=== PATIENT | female | born 1985 | race Caucasian/White ===

== ENCOUNTER 2016-10-06 12:55 | Emergency (ER) | payer BC, MEDICAID, OTHER ==
[2016-10-06 12:57] VITALS: BMI 32.2
[2016-10-06 13:07] VITALS: TEMP 98.1
[2016-10-06] MEDS ORDERED: Sodium Chloride 0.9% 1,000 ML IV STA ×2 (13:58→17:48)
--- NOTE | 2016-10-06 14:56 | ED PDOC ---
HPI:Nausea, Vomiting, Diarrhea Time Seen by Provider: 10/06/16 13:18 Chief Complaint (Nursing): Headache Chief Complaint (Provider): Nausea/Vomiting History Per: Patient History/Exam Limitations: no limitations Onset/Duration Of Symptoms: Days (x12 weeks), Worse Since (x3 days ago) Current Symptoms Are (Timing): Still Present Have you had recent travel within the past 21 days to any of the following countries: [place], [place], [place] or [place]?: No Context: Other () Severity: Moderate Associated Symptoms: Chills, Nausea, Vomiting, Other (frontal headache; denies abdominal pain or vaginal bleeding). denies: Fever Additional Complaint(s): Sally Castañeda is a 31 year old female, with no pertinent past medical history, who presents to the emergency department with complaints of nausea and vomiting , that the patient has been experiencing for 12 weeks (ever since she was ); however, her symptoms worsened over the past 3 days, prompting her visit to the emergency room. Patient states that she cannot keep anything down. Associated frontal headache that occurs in intermittent episodes and chills are also currently present. Patient reports that she has had a history of migraines in the past and that this is not the worst of her life. Denies abdominal pain, vaginal bleeding, or a fever. Of note, patient is currently 12 weeks and has not had an ultrasound performed yet. PMD: Emil Davis Abnormal Vaginal Bleeding: No : 4 Para: 3 Miscarriage: 0 Past Medical History Reviewed: Historical Data, Nursing Documentation, Vital Signs Vital Signs: Last Vital Signs Temp 98.1 F 10/06/16 13:04 Pulse 76 10/06/16 13:04 Resp 16 10/06/16 13:04 BP 111/69 10/06/16 13:04 Pulse Ox 98 10/06/16 13:04 - Medical History PMH: No Chronic Diseases - Surgical History Surgical History: - Family History Family History: States: Unknown Family Hx - Social History Current smoker - smoking cessation education provided: No Ex-Smoker (has not smoked in the last 12 months): No Alcohol: None Drugs: Denies - Home Medications Home Medications: Ambulatory Orders Medication Instructions Recorded Ibuprofen [Motrin Tab] 800 mg PO Q8 PRN #40 tab 02/22/14 Acetaminophen [Tylenol 325mg tab] 325 mg PO Q6 PRN #20 tab 10/06/16 RX: Doxylamine/Pyridoxine HCl 2 each PO HS #60 tablet. 10/06/16 [Arsenio Dueñas 10-10 mg Tablet] - Allergies Allergies/Adverse Reactions: Allergies Allergy/AdvReac Type Severity Reaction Status Date / Time No Known Allergies Allergy Verified 02/19/14 10:23 Review of Systems ROS Statement: Except As Marked, All Systems Reviewed And Found Negative Constitutional: Positive for: Chills. Negative for: Fever Gastrointestinal: Positive for: Nausea, Vomiting. Negative for: Abdominal Pain Genitourinary Female: Negative for: Vaginal Bleeding Neurological: Positive for: Headache (frontal) Physical Exam - Reviewed Nursing Documentation Reviewed: Yes Vital Signs Reviewed: Yes - Physical Exam Appears: Positive for: Non-toxic, No Acute Distress Head Exam: Positive for: ATRAUMATIC, NORMOCEPHALIC Skin: Positive for: Normal Color, Warm, Dry Eye Exam: Positive for: Normal appearance, EOMI, PERRL Neck: Positive for: Normal, Painless ROM Cardiovascular/Chest: Positive for: Regular Rate, Rhythm. Negative for: Edema, Murmur Respiratory: Positive for: Normal Breath Sounds. Negative for: Respiratory Distress Gastrointestinal/Abdominal: Positive for: Normal Exam, Soft. Negative for: Tenderness Neurologic/Psych: Positive for: Alert, Oriented - Laboratory Results Result Diagrams: 10/06/16 14:30 10/06/16 14:30 - ECG O2 Sat by Pulse Oximetry: 98 (RA) Pulse Ox Interpretation: Normal - Progress Re-evaluation Time: 17:39 Condition: Re-examined, Improved Medical Decision Making Medical Decision Makin:18 Initial Impression: nausea/vomiting and Differential Diagnoses include, but are not limited to hyperemesis gravidarum and other complications of . Initial Plan: * US OB * CBC * CMP * Urine Dip * Urine * Sodium Chloride 0.9% 1,000 ml at 1,000 mls/hr * Acetaminophen 650 mg PO * Reevaluation US OB 10w 4 d IUP Scribe Attestation: Documented by Alvarado Gaitan, acting as a scribe for Yuni Bashir MD. Provider Scribe Attestation: All medical record entries made by the Scribe were at my direction and personally dictated by me. I have reviewed the chart and agree that the record accurately reflects my personal performance of the history, physical exam, medical decision making, and the department course for this patient. I have also personally directed, reviewed, and agree with the discharge instructions and disposition. Disposition - Clinical Impression Clinical Impression: Hyperemesis gravidarum, related condition in first trimester - Patient ED Disposition Is Patient to be Admitted: No Doctor Will See Patient In The: Office Counseled Patient/Family Regarding: Studies Performed, Diagnosis, Need For Followup - Disposition Referrals: [facility] [Outside] [facility] [Outside] Disposition: Routine/Home Disposition Time: 17:40 Condition: GOOD Additional Instructions: Return for worsening. Follow up with your PCP in 2-3 days. Prescriptions: RX: Doxylamine/Pyridoxine HCl [Arsenio Dueñas 10-10 mg Tablet] 2 each PO HS #60 tablet. Acetaminophen [Tylenol 325mg tab] 325 mg PO Q6 PRN #20 tab PRN Reason: Headache Instructions: Hyperemesis Gravidarum (ED)
[2016-10-06 14:58] LABS: BASO % 0.6 % (0.0-2.0); EOS # 0.1 K/uL (0.0-0.7); EOS % 1.8 % (0.0-4.0); HEMATOCRIT 42.6 % (34.0-47.0); LYMPH % 30.1 % (20.0-40.0); MEAN CELL VOLUME 90.8 fl (81.0-99.0); MEAN CORPUSCULAR HEMOGLOBIN 30.1 pg (27.0-31.0); MEAN CORPUSCULAR HGB CONC 33.1 g/dL (33.0-37.0); MEAN PLATELET VOLUME 9.7 fl (7.2-11.7); MONO # 0.7 K/uL (0.0-0.8); MONO % 10.7 % (0.0-10.0); NEUT # 3.8 K/uL (1.8-7.0); NEUT % 56.8 % (50.0-75.0); NRBC % 0.1 % (0.0-0.0); RED CELL DISTRIBUTION WIDTH 14.2 % (11.5-14.5); WHITE BLOOD COUNT 6.7 K/uL (4.8-10.8)
[2016-10-06 15:08] LABS: ALB/GLOB RATIO 0.9 (1.0-2.1); ALKALINE PHOSPHATASE 69 U/L (38-126); ALT/SGPT 25 U/L (9-52); AST/SGOT 25 U/L (14-36); BILIRUBIN,TOTAL 0.5 mg/dl (0.2-1.3); BLOOD UREA NITROGEN 6 mg/dl (7-17); CALCIUM 9.7 mg/dL (8.4-10.2); CARBON DIOXIDE 17 mmol/L (22-30); CHLORIDE 105 mmol/L (98-107); GFR AFRICAN-AMERICAN > 60; GLUCOSE,RANDOM 64 mg/dL (65-105); POTASSIUM 3.7 MMOL/L (3.6-5.0); SODIUM 141 mmol/l (132-148); TOTAL PROTEIN 9.1 G/DL (6.3-8.2)
--- NOTE | 2016-10-06 16:44 | US ---
PROCEDURE: First trimester ultrasound HISTORY: 12 week preg vomiting COMPARISON: None available. TECHNIQUE: Standard protocol for this study/examination. FINDINGS: LMP: 07/15/2016. Prior examinations from the current : None TECHNIQUE: Real-time 2D imaging, duplex and color Doppler. FINDINGS: Cardiac activity: Present Rate: 178 BPM Measurements: [place] rump length: 4.39 cm Gestational age based on CRL 11 weeks 1 day Gestational age based on gestational sac measurement 10 weeks Gestational age derived from LMP: 11 weeks 6 stays ENMANUEL based on LMP: 04/21/2017. ENMANUEL based on biometry: 04/30/2017. Gestational concordance documented Yolk sac identified Uterus: Unremarkable. No Cervical abnormalities: Negative examination for cervical dilatation or effacement. Cervical length 3.97 cm. Subchorionic hemorrhage: None ADNEXA: Right: 2.9 x 2.5 cm. Normal Doppler arterial waveform documented. Left: 2.3 x 2.7 cm. Normal Doppler arterial waveform documented Fluid in the cul-de-sac: None IMPRESSION: 10 weeks 4 days live intrauterine gestation.
[2016-10-06 19:32] VITALS: BP 120/67; PULSE 70; RESP 20; O2SAT 99
== END 2016-10-06 19:20 | disposition home or self-care (01) ==
LOC: H.ER 12:55
DX: O21.0 Mild hyperemesis gravidarum (principal); R51 Headache; Z3A.10 10 weeks gestation of pregnancy; Z87.891 Personal history of nicotine dependence; R19.7 Diarrhea, unspecified

== ENCOUNTER 2018-09-09 19:15 | Emergency (ER) | payer MEDICAID, OTHER ==
[2018-09-09 19:16] VITALS: BMI 34.4
[2018-09-09 19:58] VITALS: BP 121/72; PULSE 73; RESP 16; TEMP 98.5; O2SAT 100
--- NOTE | 2018-09-09 21:26 | ED PDOC ---
HPI: Abdomen Time Seen by Provider: 09/09/18 20:06 Chief Complaint (Nursing): Abdominal Pain Chief Complaint (Provider): Abdominal Pain History Per: Patient History/Exam Limitations: no limitations Onset/Duration Of Symptoms: Days (x1) Current Symptoms Are (Timing): Still Present Additional Complaint(s): Patient is a 33 y/o female with no significant PMHx who presents to the ED for evaluation of dysuria, urinary frequency, and abdominal pain since yesterday. Patient complains of occasional bleeding, increasing since onset. Patient also admits to lower back pain and subjective chills. Patient denies vaginal bleeding or discharge, fever, nausea, vomiting, and diarrhea. Of note, patient states she has a normal appetite. PCP: None Provided Past Medical History Reviewed: Historical Data, Nursing Documentation, Vital Signs Vital Signs: Last Vital Signs Temp 98.5 F 09/09/18 19:54 Pulse 73 09/09/18 19:54 Resp 16 09/09/18 19:54 BP 121/72 09/09/18 19:54 Pulse Ox 100 09/09/18 19:54 - Medical History PMH: No Chronic Diseases Denies: Depression, Diabetes, HTN - Surgical History Surgical History: (two) - Family History Family History: States: No Known Family Hx - Social History Current smoker - smoking cessation education provided: No Ex-Smoker (has not smoked in the last 12 months): No Alcohol: None Drugs: Denies - Home Medications Home Medications: Ambulatory Orders Medication Instructions Recorded Ibuprofen [Motrin Tab] 800 mg PO Q8 PRN #40 tab 02/22/14 Acetaminophen [Tylenol 325mg tab] 325 mg PO Q6 PRN #20 tab 10/06/16 Doxylamine/Pyridoxine HCl (B6) 2 each PO HS #60 tablet. 10/06/16 [Arsenio Dueñas 10-10 mg Tablet] Vit Calc,Iron,Folic 1 each PO DAILY 04/23/17 [ Vitamins] Cefpodoxime [Vantin] 200 mg PO BID #20 tab 09/09/18 Ibuprofen [Motrin Tab] 600 mg PO Q8 PRN #30 tab 09/09/18 Phenazopyridine HCl [Pyridium] 200 mg PO BID PRN #20 tablet 09/09/18 - Allergies Allergies/Adverse Reactions: Allergies Allergy/AdvReac Type Severity Reaction Status Date / Time No Known Allergies Allergy Verified 09/09/18 19:54 Review of Systems ROS Statement: Except As Marked, All Systems Reviewed And Found Negative (as per HPI) Constitutional: Positive for: Chills (subjective), Other (normal appetite). Negative for: Fever Gastrointestinal: Positive for: Abdominal Pain. Negative for: Nausea, Vomiting, Diarrhea Genitourinary Female: Positive for: Dysuria, Frequency. Negative for: Vaginal Discharge, Vaginal Bleeding Musculoskeletal: Positive for: Back Pain (lower) Physical Exam - Reviewed Nursing Documentation Reviewed: Yes Vital Signs Reviewed: Yes - Physical Exam Appears: Positive for: Non-toxic, In Acute Distress (painful) Head Exam: Positive for: ATRAUMATIC, NORMOCEPHALIC Skin: Positive for: Warm, Dry Gastrointestinal/Abdominal: Positive for: Soft, Tenderness (suprapubic). Negative for: Mass, Guarding, Rebound, Other (McBurney's and Israel's Sign) Back: Positive for: Normal Inspection, Other (Pt reporting back pain localizing to bilateral lumbar area, but no tenderness at this site.). Negative for: L CVA Tenderness, R CVA Tenderness, Vertebral Tenderness Extremity: Positive for: Normal ROM. Negative for: Deformity Neurological/Psych: Positive for: Awake, Alert. Negative for: Motor/Sensory Deficits - ECG O2 Sat by Pulse Oximetry: 100 (RA) Pulse Ox Interpretation: Normal Medical Decision Making Medical Decision Making: Time: 2040 Impression: UTI Plan: Urine Urine Dipstick Motrin 600 mg PO Tylenol 975 mg PO Urine Culture UA Scribe Attestation: Documented by Kam Noriega, acting as a scribe for Janet Serrano MD. Provider Scribe Attestation: All medical record entries made by the Scribe were at my direction and personally dictated by me. I have reviewed the chart and agree that the record accurately reflects my personal performance of the history, physical exam, medical decision making, and the department course for this patient. I have also personally directed, reviewed, and agree with the discharge instructions and disposition. Disposition - Clinical Impression Clinical Impression: UTI (urinary tract infection) Counseled Patient/Family Regarding: Studies Performed, Diagnosis, Need For F ollowup, Rx Given - Disposition Referrals: [facility] [Outside] [facility] [Outside] Disposition: Routine/Home Disposition Time: 21:00 Condition: STABLE Additional Instructions: FOLLOWUP WITH YOUR DOCTOR OR [facility] [employer] IN 2 DAYS FOR REEVALUATION Prescriptions: Cefpodoxime [Vantin] 200 mg PO BID #20 tab Ibuprofen [Motrin Tab] 600 mg PO Q8 PRN #30 tab PRN Reason: Pain, Moderate (4-7) Phenazopyridine HCl [Pyridium] 200 mg PO BID PRN #20 tablet PRN Reason: DYSURIA Instructions: Urinary Tract Infection, Adult (DC) Forms: [employer] (Bangladeshi), [facility] ED School/Work Excuse
[2018-09-09 21:41] LABS: SQUAMOUS EPITHIAL 2 /hpf (0-5); URINE BACTERIA RARE (<OCC); URINE BILIRUBIN NEGATIVE (NEGATIVE); URINE BLOOD MODERATE (NEGATIVE); URINE CLARITY CLOUDY (Clear); URINE COLOR YELLOW (YELLOW); URINE GLUCOSE (UA) NEG (NEGATIVE); URINE LEUKOCYTE ESTERASE LARGE Leu/uL (Negative); URINE PROTEIN 30 mg/dL (NEGATIVE); URINE UROBILINOGEN 0.2-1.0 mg/dL (0.2-1.0)
== END 2018-09-09 22:15 | disposition home or self-care (01) ==
LOC: H.ER 19:15
DX: N39.0 Urinary tract infection, site not specified (principal); Z87.891 Personal history of nicotine dependence